=== PATIENT | female | born 1985 | race Caucasian/White ===

== ENCOUNTER 2018-03-20 15:22 | Observation (INO) | payer MEDICAID ==
[~2018-03-20] VITALS: Ht 162.6 cm; Wt 116.4 kg
[2018-03-20 16:08] LABS: BASOPHILS # (AUTO) 0.03 x10^3/uL (0-0.1); BASOPHILS % (AUTO) 0 % (0-1); EOSINOPHILS # (AUTO) 0.16 x10^3/uL (0-0.4); EOSINOPHILS % (AUTO) 2 % (1-7); LYMPHOCYTES # (AUTO) 1.79 x10^3/uL (1-3.4); LYMPHOCYTES % (AUTO) 26 % (22-44); MD NO; MEAN CORPUSCULAR HEMOGLOBIN 28.4 pg (27.0-34.8); MEAN CORPUSCULAR HGB CONC 32.1 g/dL (32.4-35.8); MEAN CORPUSCULAR VOLUME 88.3 fL (80-100); MEAN PLATELET VOLUME 8.1 fL (7.4-10.4); MONOCYTES # (AUTO) 0.37 x10^3/uL (0.2-0.8); MONOCYTES % (AUTO) 5 % (2-9); NEUTROPHILS # (AUTO) 4.66 x10^3/uL (1.8-6.8); NEUTROPHILS % (AUTO) 67 % (42-75); PLATELET COUNT 215 x10^3/uL (130-400); RED BLOOD COUNT 4.33 x10^6/uL (3.82-5.3); RED CELL DISTRIBUTION WIDTH 16.1 % (9.6-15.2)
[2018-03-20 16:28] LABS: ACETAMINOPHEN < 2 mcg/mL (10-30)
[2018-03-20 17:37] LABS: ALBUMIN 3.6 g/dL (3.4-5.0); ANION GAP 9 mmol/L (5-15); CALCIUM 8.5 mg/dL (8.5-10.1); CHLORIDE 110 mmol/L (98-107); CREATININE 0.65 mg/dL (0.55-1.02)
[2018-03-20 17:47] LABS: SALICYLATE LEVEL < 1.7 mg/dL (2.8-20.0)
[2018-03-20 17:57] LABS: HCG UR SG 1.032 (1.003-1.030)
[2018-03-20 18:09] LABS: AMPHETAMINE SCREEN, URINE Positive (Negative); BARBITURATE SCREEN, URINE Negative (Negative); BENZODIAZEPINE SCREEN, URINE Negative (Negative); CANNABINOID SCREEN, URINE Positive (Negative); COCAINE SCREEN, URINE Negative (Negative); METHADONE SCREEN, URINE Negative (Negative); OPIATE SCREEN, URINE Negative (Negative)
[2018-03-20] MEDS ORDERED: ONDANSETRON ODT 4 MG PO PRN (19:30)
[2018-03-20] MEDS ORDERED: LORazepam 2 MG/ML, 1ML IM PRN (19:30)
[2018-03-20] MEDS ORDERED: DOCUSATE 100 MG CAPSULE PO PRN (19:30)
[2018-03-20] MEDS: NICOTINE 7 MG/24 HR PATCH.TD24 TD SCH (19:30)
[2018-03-20 20:30] VITALS: BP 131/84
[2018-03-20] MEDS: LORazepam 1MG TABLET PO PRN (21:24)
[2018-03-20 21:30] VITALS: BP 131/84
[2018-03-21 07:50] VITALS: BP 106/65
[2018-03-21 19:30] VITALS: BP 120/76
[2018-03-21] MEDS: NICOTINE 7 MG/24 HR PATCH.TD24 TD SCH (19:30)
[2018-03-21] MEDS: LORazepam 1MG TABLET PO PRN (21:09)
[2018-03-22 08:05] VITALS: BP 115/73
[2018-03-22] MEDS: SERTRALINE 50MG TABLET PO SCH (14:47)
[2018-03-22] MEDS: NICOTINE 7 MG/24 HR PATCH.TD24 TD SCH (19:30)
[2018-03-22 19:37] VITALS: BP 144/70
[2018-03-23 07:32] VITALS: BP 116/76
[2018-03-23] MEDS: SERTRALINE 50MG TABLET PO SCH (08:22)
[2018-03-23 19:52] VITALS: BP 130/82
[2018-03-23] MEDS: LORazepam 1MG TABLET PO PRN (20:03)
[2018-03-23] MEDS: NICOTINE 7 MG/24 HR PATCH.TD24 TD SCH (20:19)
[2018-03-24 07:35] VITALS: BP 118/73
[2018-03-24] MEDS: SERTRALINE 50MG TABLET PO SCH (08:43)
[2018-03-24 19:25] VITALS: BP 109/71
[2018-03-24] MEDS: ACETAMINOPHEN 325 MG TABLET PO PRN (19:28)
[2018-03-24] MEDS: NICOTINE 7 MG/24 HR PATCH.TD24 TD SCH (19:30)
[2018-03-24] MEDS: LORazepam 1MG TABLET PO PRN (19:37)
[2018-03-25 07:12] VITALS: BP 112/70
[2018-03-25] MEDS: SERTRALINE 50MG TABLET PO SCH (08:42)
[2018-03-25] MEDS: LORazepam 1MG TABLET PO PRN ×2 (13:57→22:46)
[2018-03-25 19:27] VITALS: BP 112/61
[2018-03-25] MEDS: NICOTINE 7 MG/24 HR PATCH.TD24 TD SCH (19:30)
[2018-03-26 08:07] VITALS: BP 108/68
[2018-03-26] MEDS: SERTRALINE 50MG TABLET PO SCH (08:31)
[2018-03-26] MEDS: NICOTINE 7 MG/24 HR PATCH.TD24 TD SCH (19:30)
[2018-03-26 20:05] VITALS: BP 111/64
[2018-03-26] MEDS: LORazepam 1MG TABLET PO PRN (23:30)
[2018-03-26] MEDS: ACETAMINOPHEN 325 MG TABLET PO PRN (23:30)
[2018-03-27 07:55] VITALS: BP 105/75
[2018-03-27] MEDS: SERTRALINE 50MG TABLET PO SCH (08:49)
[2018-03-27] MEDS: ACETAMINOPHEN 325 MG TABLET PO PRN ×2 (08:54→20:43)
[2018-03-27 19:27] VITALS: BP 121/74
[2018-03-27] MEDS: NICOTINE 7 MG/24 HR PATCH.TD24 TD SCH (19:30)
[2018-03-27] MEDS: LORazepam 1MG TABLET PO PRN (20:43)
[2018-03-28 08:01] VITALS: BP 100/51
[2018-03-28] MEDS: SERTRALINE 50MG TABLET PO SCH (09:43)
[2018-03-28 19:28] VITALS: BP 115/73
[2018-03-28] MEDS: NICOTINE 7 MG/24 HR PATCH.TD24 TD SCH (19:30)
[2018-03-28] MEDS: ACETAMINOPHEN 325 MG TABLET PO PRN (21:59)
[2018-03-29 08:00] VITALS: BP 99/65
[2018-03-29] MEDS: SERTRALINE 50MG TABLET PO SCH (09:05)
[2018-03-29] MEDS: NICOTINE 7 MG/24 HR PATCH.TD24 TD SCH (19:30)
[2018-03-29 19:52] VITALS: BP 103/61
[2018-03-29] MEDS: ACETAMINOPHEN 325 MG TABLET PO PRN (20:23)
[2018-03-30] MEDS: SERTRALINE 50MG TABLET PO SCH (07:50)
[2018-03-30 08:10] VITALS: BP 95/65
[2018-03-30 19:22] VITALS: BP 113/60
[2018-03-30] MEDS: NICOTINE 7 MG/24 HR PATCH.TD24 TD SCH (19:30)
[2018-03-30] MEDS: ACETAMINOPHEN 325 MG TABLET PO PRN (22:41)
[2018-03-30] MEDS: LORazepam 1MG TABLET PO PRN (22:41)
[2018-03-31] MEDS: SERTRALINE 50MG TABLET PO SCH (08:09)
[2018-03-31 08:24] VITALS: BP 103/63
[2018-03-31] MEDS ORDERED: SERT50TA5 PO (11:44)
== END 2018-03-31 12:00 | disposition home or self-care (01) ==
LOC: ED 18:33 → EDIP 18:46 → INTOOBSV 18:46 → 2N 20:30
PROVIDERS: ADMIT Internal Medicine; ATTEND Internal Medicine
DX: R45.851 Suicidal ideations (principal); E11.9 Type 2 diabetes mellitus without complications; F10.10 Alcohol abuse, uncomplicated; F12.10 Cannabis abuse, uncomplicated; F15.10 Other stimulant abuse, uncomplicated; F17.210 Nicotine dependence, cigarettes, uncomplicated; F32.2 Major depressive disorder, single episode, severe without psychotic features; F41.1 Generalized anxiety disorder
CPT/HCPCS: 36415; 80048; 80307; 80329; 81025; 82040; 82140; 84443; 85025; 99284; G0378; 99285; G0480

== ENCOUNTER 2018-10-04 14:53 | Emergency (ER) | payer SELFPAY ==
[~2018-10-04] VITALS: Ht 162.6 cm; Wt 118.9 kg
[~2018-10-04 14:53] MED LIST: SERT50TA28 PO
[2018-10-04 15:29] LABS: CULTURE INDICATED? YES; MICROSCOPIC INDICATED
[2018-10-04 16:03] LABS: ALBUMIN 3.6 g/dL (3.4-5.0); ANION GAP 6 mmol/L (5-15); CALCIUM 9.5 mg/dL (8.5-10.1); CHLORIDE 108 mmol/L (98-107); CREATININE 0.99 mg/dL (0.55-1.02)
--- NOTE | 2018-10-04 16:19 | NUR ---
HOSPITAL ADMITTING CLERK: PT AMBULATORY TO ED ROOM 22 FROM [place] IN NAD
[2018-10-04 16:22] LABS: BASOPHILS # (AUTO) 0.01 x10^3/uL (0-0.1); BASOPHILS % (AUTO) 0 % (0-1); EOSINOPHILS # (AUTO) 0.38 x10^3/uL (0-0.4); EOSINOPHILS % (AUTO) 3 % (1-7); LYMPHOCYTES # (AUTO) 0.89 x10^3/uL (1-3.4); LYMPHOCYTES % (AUTO) 6 % (22-44); MD NO; MEAN CORPUSCULAR HEMOGLOBIN 32.6 pg (27.0-34.8); MEAN CORPUSCULAR HGB CONC 33.2 g/dL (32.4-35.8); MEAN CORPUSCULAR VOLUME 98.3 fL (80-100); MEAN PLATELET VOLUME 8.3 fL (7.4-10.4); MONOCYTES # (AUTO) 0.81 x10^3/uL (0.2-0.8); MONOCYTES % (AUTO) 6 % (2-9); NEUTROPHILS # (AUTO) 12.15 x10^3/uL (1.8-6.8); NEUTROPHILS % (AUTO) 85 % (42-75); PLATELET COUNT 194 x10^3/uL (130-400); RED BLOOD COUNT 4.38 x10^6/uL (3.82-5.3); RED CELL DISTRIBUTION WIDTH 14.2 % (9.6-15.2)
--- NOTE | 2018-10-04 16:27 | NUR ---
PT HAVING PAIN NO MATTER IF SITTING OR LYING AROUND VAGINA AND VAGINALLY WITH SWELLING. ADDITIONALLY PAINFUL URINATION AND FLANK PAIN
[2018-10-04] MEDS ORDERED: CEFTRIAXONE 1,000 MG ONE (17:12)
[2018-10-04] MEDS ORDERED: ONDANSETRON ODT 4 MG ONE (17:12)
[2018-10-04] MEDS ORDERED: OXYcodone/APAP 5/325MG TABLET ONE (17:12)
[2018-10-04] MEDS ORDERED: LIDOCAINE-MPF 1%, 2ML ONE (17:13)
[2018-10-04] MEDS ORDERED: OXYcodone/APAP 5/325MG TABLET PO ONE (17:30)
[2018-10-04] MEDS ORDERED: ONDANSETRON ODT 4 MG PO ONE (17:30)
[2018-10-04] MEDS ORDERED: CEFTRIAXONE 1,000 MG IM ONE (17:30)
--- NOTE | 2018-10-04 17:43 | NUR ---
Patient/Caregiver given discharge instructions and they have confirmed that they understand the instructions. Patient ambulatory with steady gait.
[2018-10-04 17:45] VITALS: BP 101/64
== END 2018-10-04 17:44 | disposition home or self-care (01) ==
LOC: ED 17:38
DX: N30.00 Acute cystitis without hematuria (principal); F32.9 Major depressive disorder, single episode, unspecified; F17.200 Nicotine dependence, unspecified, uncomplicated; Z88.6 Allergy status to analgesic agent
CPT/HCPCS: 36415; 80048; 81001; 81025; 82040; 85025; 87086; 96372; 99283; J0696; Q0162